=== PATIENT | female | born 1970 | race Caucasian/White ===

== ENCOUNTER 2018-07-27 11:29 | Emergency (ER) | payer MEDICARE, OTHER ==
[~2018-07-27] VITALS: Ht 167.6 cm; Wt 81.7 kg
[~2018-07-27 11:29] MED LIST: LISINOPRIL10 MG PO; ZOLOFT25 MG PO; ZYPREXA10 MG PO
[2018-07-27] MEDS ORDERED: NORCO 5-325 TA1 EACH PO (12:52)
== END 2018-07-27 13:05 | disposition home or self-care (01) ==
LOC: ED 11:29
DX: S82.392A Other fracture of lower end of left tibia, initial encounter for closed fracture (principal); S82.832A Other fracture of upper and lower end of left fibula, initial encounter for closed fracture; I10 Essential (primary) hypertension; F17.200 Nicotine dependence, unspecified, uncomplicated; Z79.899 Other long term (current) drug therapy; W01.0XXA Fall on same level from slipping, tripping and stumbling without subsequent striking against object, initial encounter
CPT/HCPCS: 73610; 99283; 99406

== ENCOUNTER 2019-06-17 11:41 | Emergency (ER) | payer MEDICARE, OTHER ==
[~2019-06-17] VITALS: Ht 167.6 cm; Wt 81.7 kg
[~2019-06-17 11:41] MED LIST changes: +NORCO 5-325 TA1 EACH PO; +SEROQUEL50 MG PO; +SIMVASTATIN5 MG PO
--- OUTSIDE RECORDS SUMMARY | 2019-06-17 11:44 | XMS ---
PreManage Notification: AMINA PANCHAL Security Mess Attendant Events 1 event(s) in the past 18 months Most recent security events: Physical at [facility] 03/20/2019 12:02 - Other Details: POLICE.VIOLENT CRITERIA MET - Group Notification CARE PROVIDERS There are no care providers on record at this time. Casey has no Care Guidelines for this patient. Lizette VISIT COUNT (12 MO.) 4 [facility] TOTAL 4 NOTE: Visits indicate total known visits. ED/C VISIT TRACKING (12 MO.) 06/17/2019 11:42 [facility] [place] TYPE: Emergency COMPLAINT: - OVERDOSE 03/25/2019 15:12 [facility] [place] TYPE: Emergency COMPLAINT: - MEDICAL CLEARANCE DIAGNOSES: - Other intermediate (current) drug therapy - Nicotine dependence, unspecified, uncomplicated - Essential (primary) hypertension - Bipolar disorder, unspecified - Dissociative identity disorder - Schizoaffective disorder, unspecified 03/20/2019 12:02 [facility] [place] TYPE: Emergency COMPLAINT: - MED CLEARANCE DIAGNOSES: - Nicotine dependence, unspecified, uncomplicated - Essential (primary) hypertension - Other intermediate (current) drug therapy - Other stimulant use, unspecified with stimulant-induced psych - Other stimulant use, unspecified with stimulant-induced psych 07/27/2018 11:30 [facility] [place] TYPE: Emergency COMPLAINT: - FALL DIAGNOSES: - Nicotine dependence, cigarettes, uncomplicated - Fall on same level from slipping, tripping and stumbling with - Other fracture of lower end of left tibia, initial encounter - Nicotine dependence, unspecified, uncomplicated - Unspecified injury of left ankle, initial encounter - Other superintendent container terminal (current) drug therapy - Essential (primary) hypertension - Other fracture of upper and lower end of left fibula, initial INPATIENT VISIT TRACKING (12 MO.) No inpatient visits to display in this time frame [id number]
[2019-06-17] MEDS ORDERED: ZYPREXA5 MG PO (12:21)
[2019-06-17] MEDS ORDERED: LISINOPRIL20 MG PO (12:26)
[2019-06-17] MEDS ORDERED: VITAMIN D21250 MCG PO (12:27)
--- NOTE | 2019-06-17 13:09 | EKG ---
[facility] [address] [facility] [place], [place] [address] Signed Normal sinus rhythm Normal ECG No previous ECGs available Confirmed by PAT LARA DO ([id number]) on 06/17/2019 1:09:28 PM Electronically Signed By: PAT LARA DO 06/17/19 1309 PATIENT NAME: AMINA PANCHAL Electrocardiogram DATE OF : 68 PHYSICIAN: PAT LARA DO REPORT #: [id number] REPORT IS CONFIDENTIAL AND NOT TO BE RELEASED WITHOUT AUTHORIZATION
== END 2019-06-17 14:16 | disposition home or self-care (01) ==
LOC: ED 11:41
DX: T43.592A Poisoning by other antipsychotics and neuroleptics, intentional self-harm, initial encounter (principal); T43.212A Poisoning by selective serotonin and norepinephrine reuptake inhibitors, intentional self-harm, initial encounter; I10 Essential (primary) hypertension; Z87.891 Personal history of nicotine dependence; Z79.899 Other long term (current) drug therapy; F15.10 Other stimulant abuse, uncomplicated
CPT/HCPCS: 51701; 80053; 80176; 81001; 84443; 84703; 85025; 93005; 93010; 99285-25; G0480

== ENCOUNTER 2020-08-10 01:35 | Emergency (ER) | payer MEDICARE, OTHER ==
[~2020-08-10] VITALS: Ht 167.6 cm; Wt 81.0 kg
[~2020-08-10 01:35] MED LIST changes: +LISINOPRIL20 MG PO; +VITAMIN D21250 MCG PO; +ZYPREXA5 MG PO
[2020-08-10] MEDS ORDERED: LISINOPRIL20 MG PO (02:32)
--- NOTE | 2020-08-10 11:17 | EKG ---
[facility] [address] [facility] [place], [place] [address] Signed Normal sinus rhythm Normal ECG No previous ECGs available Confirmed by PAT LARA DO ([id number]) on 08/10/2020 11:16:59 AM Electronically Signed By: PAT LARA DO 08/10/20 1117 PATIENT NAME: AMINA MOSES Electrocardiogram DATE OF : 68 PHYSICIAN: PAT LARA DO REPORT #: [id number] REPORT IS CONFIDENTIAL AND NOT TO BE RELEASED WITHOUT AUTHORIZATION
== END 2020-08-10 03:45 | disposition home or self-care (01) ==
LOC: ED 01:35
DX: I10 Essential (primary) hypertension (principal); R07.89 Other chest pain; F17.200 Nicotine dependence, unspecified, uncomplicated
CPT/HCPCS: 93005; 93010; 99284-25

== ENCOUNTER 2021-08-15 17:30 | Emergency (ER) | payer MEDICARE, OTHER ==
[~2021-08-15] VITALS: Ht 167.6 cm; Wt 80.7 kg
--- OUTSIDE RECORDS SUMMARY | 2021-08-15 17:32 | XMS ---
PreManage Notification: AMINA MOSES Security Technical Operations Specialist Events No recent Security Events currently on file CRITERIA MET - Group Notification CARE PROVIDERS There are no care providers on record at this time. Casey has no Care Guidelines for this patient. Lizette VISIT COUNT (12 MO.) 1 [facility] Sal[facility] 1 [facility] Galvan TOTAL 2 NOTE: Visits indicate total known visits. ED/C VISIT TRACKING (12 MO.) 08/15/2021 17:31 [facility] [place] TYPE: Emergency COMPLAINT: - LT KNEE INJURY 10/22/2020 20:26 [facility] [place] TYPE: Emergency DIAGNOSES: - R ELBOW INJ - Unspecified fall, initial encounter - Unspecified injury of right elbow, initial encounter INPATIENT VISIT TRACKING (12 MO.) No inpatient visits to display in this time frame [id number]
[2021-08-15] MEDS ORDERED: NORVASC5 MG PO (19:46)
[2021-08-15] MEDS ORDERED: SIMVASTATIN20 MG PO (19:46)
== END 2021-08-15 21:13 | disposition home or self-care (01) ==
LOC: ED 17:30
DX: S93.402A Sprain of unspecified ligament of left ankle, initial encounter (principal); S80.02XA Contusion of left knee, initial encounter; S80.01XA Contusion of right knee, initial encounter; I10 Essential (primary) hypertension; E78.5 Hyperlipidemia, unspecified; F17.200 Nicotine dependence, unspecified, uncomplicated; Z88.6 Allergy status to analgesic agent; Z91.041 Radiographic dye allergy status; Z88.0 Allergy status to penicillin; Z91.09 Other allergy status, other than to drugs and biological substances; Z79.899 Other long term (current) drug therapy; W19.XXXA Unspecified fall, initial encounter
CPT/HCPCS: 73560; 73610; 99283-25

== ENCOUNTER 2021-09-26 16:41 | Emergency (ER) | payer MEDICARE, OTHER ==
[~2021-09-26] VITALS: Ht 167.6 cm; Wt 68.0 kg
[~2021-09-26 16:41] MED LIST changes: +NORVASC5 MG PO; +SIMVASTATIN20 MG PO
--- OUTSIDE RECORDS SUMMARY | 2021-09-26 16:48 | XMS ---
PreManage Notification: AMINA MOSES Security Band Shover Events No recent Security Events currently on file CRITERIA MET - Group Notification CARE PROVIDERS There are no care providers on record at this time. Casey has no Care Guidelines for this patient. Lizette VISIT COUNT (12 MO.) 1 Giovanni Salazar 2 [facility] Galvan TOTAL 3 NOTE: Visits indicate total known visits. ED/C VISIT TRACKING (12 MO.) 09/26/2021 16:41 [facility] [place] TYPE: Emergency COMPLAINT: - WEAKNESS 08/15/2021 17:31 [facility] [place] TYPE: Emergency COMPLAINT: - LT KNEE INJURY DIAGNOSES: - Pain in left ankle and joints of left foot - Essential (primary) hypertension - Nicotine dependence, unspecified, uncomplicated - Other allergy status, other than to drugs and biological substances - Hyperlipidemia, unspecified - Other penitentiary (current) drug therapy - Contusion of left knee, initial encounter - Radiographic dye allergy status - Unspecified fall, initial encounter - Allergy status to penicillin - Contusion of right knee, initial encounter - Allergy status to analgesic agent - Sprain of unspecified ligament of left ankle, initial encounter 10/22/2020 20:26 [facility] [place] TYPE: Emergency DIAGNOSES: - Unspecified fall, initial encounter - Unspecified injury of right elbow, initial encounter - R ELBOW INJ INPATIENT VISIT TRACKING (12 MO.) No inpatient visits to display in this time frame [id number]
--- NOTE | 2021-09-27 07:30 | EKG ---
[facility] [address] [facility] [place], [place] [address] Signed Normal sinus rhythm Normal ECG When compared with ECG of 10-AUG-2020 02:25, No significant change was found Confirmed by TALON LARA MD ([id number]) on 09/27/2021 7:29:52 AM Electronically Signed By: TALON LARA MD 09/27/21 0730 PATIENT NAME: AMINA MOSES Electrocardiogram DATE OF : 68 PHYSICIAN: TALON LARA MD REPORT #: [id number] REPORT IS CONFIDENTIAL AND NOT TO BE RELEASED WITHOUT AUTHORIZATION
[2021-09-27] MEDS ORDERED: SIMVASTATIN20 MG PO (13:41)
[2021-09-27] MEDS ORDERED: LISINOPRIL20 MG PO (13:42)
[2021-09-27] MEDS ORDERED: ALL DAY ALLERGY10 M3 PO (13:42)
[2021-09-27] MEDS ORDERED: NORVASC5 MG PO (13:42)
[2021-09-27] MEDS ORDERED: ZYPREXA15 MG PO (13:44)
== END 2021-09-28 10:46 | disposition home or self-care (01) ==
LOC: ED 16:41
DX: R45.851 Suicidal ideations (principal); F22 Delusional disorders; F15.90 Other stimulant use, unspecified, uncomplicated; I10 Essential (primary) hypertension; E78.5 Hyperlipidemia, unspecified; F17.200 Nicotine dependence, unspecified, uncomplicated; Z20.822 Contact with and (suspected) exposure to COVID-19; Z88.0 Allergy status to penicillin; Z88.6 Allergy status to analgesic agent; Z91.041 Radiographic dye allergy status; Z91.048 Other nonmedicinal substance allergy status; Z79.899 Other long term (current) drug therapy
CPT/HCPCS: 36415; 70450; 80053; 81001; 84443; 84703; 85025; 87502; 93005; 93010; A9270; C9803; G0480; U0003

== ENCOUNTER 2021-12-31 15:54 | Emergency (ER) | payer MEDICARE, OTHER ==
[~2021-12-31] VITALS: Ht 167.6 cm; Wt 88.5 kg
[~2021-12-31 15:54] MED LIST changes: +ALL DAY ALLERGY10 M3 PO; +ZYPREXA15 MG PO
--- OUTSIDE RECORDS SUMMARY | 2021-12-31 16:02 | XMS ---
PreManage Notification: AMINA MOSES Security Supervisor Quality Control Events No recent Security Events currently on file CRITERIA MET - Group Notification CARE PROVIDERS There are no care providers on record at this time. Casey has no Care Guidelines for this patient. Lizette VISIT COUNT (12 MO.) 3 JOHN Galvan TOTAL 3 NOTE: Visits indicate total known visits. ED/C VISIT TRACKING (12 MO.) 12/31/2021 15:54 [facility] [place] TYPE: Emergency COMPLAINT: - GENITAL BLEEDING 09/26/2021 16:41 [facility] [place] TYPE: Emergency COMPLAINT: - WEAKNESS DIAGNOSES: - Suicidal ideations - Allergy status to penicillin - Essential (primary) hypertension - Other stimulant use, unspecified with stimulant-induced psychotic disorder, unspecified - Hyperlipidemia, unspecified - Contact with and (suspected) exposure to COVID-19 - Other nonmedicinal substance allergy status - Other stimulant use, unspecified, uncomplicated - Radiographic dye allergy status - Other senior sharepoint architect (current) drug therapy - Delusional disorders - Allergy status to analgesic agent - Headache, unspecified - Nicotine dependence, unspecified, uncomplicated 08/15/2021 17:31 [facility] [place] TYPE: Emergency COMPLAINT: - LT KNEE INJURY DIAGNOSES: - Other allergy status, other than to drugs and biological substances - Hyperlipidemia, unspecified - Other senior sharepoint architect (current) drug therapy - Contusion of left knee, initial encounter - Radiographic dye allergy status - Unspecified fall, initial encounter - Allergy status to penicillin - Contusion of right knee, initial encounter - Allergy status to analgesic agent - Sprain of unspecified ligament of left ankle, initial encounter - Pain in left ankle and joints of left foot - Essential (primary) hypertension - Nicotine dependence, unspecified, uncomplicated INPATIENT VISIT TRACKING (12 MO.) No inpatient visits to display in this time frame [id number]
[2021-12-31] MEDS ORDERED: METFORMIN HCL500 M1 PO (16:58)
[2021-12-31] MEDS ORDERED: VITAMIN D21250 MCG PO (16:58)
[2021-12-31] MEDS ORDERED: TRAZODONE HCL100 MG PO (16:58)
== END 2021-12-31 22:19 | disposition home or self-care (01) ==
LOC: ED 15:54
DX: N93.9 Abnormal uterine and vaginal bleeding, unspecified (principal); I10 Essential (primary) hypertension; E78.5 Hyperlipidemia, unspecified; F17.200 Nicotine dependence, unspecified, uncomplicated; Z88.0 Allergy status to penicillin; Z88.6 Allergy status to analgesic agent; Z91.048 Other nonmedicinal substance allergy status; Z79.84 Long term (current) use of oral hypoglycemic drugs; Z79.899 Other long term (current) drug therapy
CPT/HCPCS: 36415; 80053; 81001; 85025; 99284

== ENCOUNTER 2023-03-12 13:26 | Emergency (ER) | payer MEDICARE, OTHER ==
[~2023-03-12] VITALS: Ht 167.6 cm; Wt 99.8 kg
[~2023-03-12 13:26] MED LIST changes: +METFORMIN HCL500 M1 PO; +TRAZODONE HCL100 MG PO
--- OUTSIDE RECORDS SUMMARY | 2023-03-12 13:35 | XMS ---
PreManage Notification: AMINA MOSES Security Fire Inspector Events No recent Security Events currently on file CRITERIA MET - Group Notification CARE PROVIDERS -, [place]- Dentist: Golf Sales Manager [facility] PHONE: [phone] -, [place]- Dentist: Golf Sales Manager [facility] PHONE: [phone] [facility]/Center: [facility] Current \F\ [facility] PHONE: [phone] Casey has no Care Guidelines for this patient. E.D. VISIT COUNT (12 MO.) 2 JOHN Galvan TOTAL 2 NOTE: Visits indicate total known visits. ED/UCC VISIT TRACKING (12 MO.) 03/12/2023 13:27 [facility] [place] TYPE: Emergency COMPLAINT: - CHEST PAIN 08/29/2022 22:20 [facility] [place] TYPE: Emergency COMPLAINT: - MEDICAL CLEARANCE DIAGNOSES: - Allergy status to analgesic agent - Allergy status to other drugs, medicaments and biological substances - Allergy status to penicillin - Allergy to seafood - Brief psychotic disorder - Contusion of left forearm, initial encounter - Essential (primary) hypertension - Hyperlipidemia, unspecified - Nicotine dependence, unspecified, uncomplicated - Other termite treater (current) drug therapy - Other nonmedicinal substance allergy status - Other stimulant use, unspecified with stimulant-induced psychotic disorder, unspecified - Pain in left forearm - Pain in right leg - Unspecified fall, initial encounter INPATIENT VISIT TRACKING (12 MO.) No inpatient visits to display in this time frame [id number]
[2023-03-12 13:49] LABS: BASOPHILS 0.8 % (0-2); EOSINOPHILS 2.1 % (0-6); HEMATOCRIT 40.9 % (35.0-50.0); HEMOGLOBIN 13.6 g/dL (12.0-18.0); LYMPHOCYTES 27.3 % (24-44); MCH 25.8 (27-36); MCHC 33.3 g/dl (30-36); MCV 77.3 fl (81-99); MONOCYTES 7.7 % (0-12); NEUTROPHILS 62.1 % (39-80); PLATELET COUNT 211 K/uL (140-440); RBC 5.29 M/ul (4.3-5.7); RDW 15.5 (10.5-15.0)
[2023-03-12 14:13] LABS: ALBUMIN 3.5 g/dL (3.4-5.0); ALBUMIN/GLOBULIN RATIO 0.92 (1.1-2.4); ALCOHOL, MEDICAL <3 ng/dL (<3); ALKALINE PHOSPHATASE 62 U/L (46-116); ALT (SGPT) 28 U/L (14-59); ANION GAP 17.6 (7-21); AST (SGOT) 33 U/L (15-37); BILIRUBIN, TOTAL 0.5 ng/dL (0.2-1.0); BUN/CREATININE RATIO 13.68 (6.0-28.6); CALCIUM 9.5 mg/dL (8.5-10.1); CARBON DIOXIDE 25 mmol/L (21-32); CHLORIDE 108 mmol/L (98-107); CREATININE, SERUM 0.95 mg/dL (0.55-1.02); GLOMERULAR FILTRATION RATE,EST 72 mL/min (>60); POTASSIUM 3.6 mmol/L (3.5-5.1); PROTEIN, TOTAL 7.3 g/dL (6.4-8.2); UREA NITROGEN 13 mg/dL (7-18)
[2023-03-12 14:19] LABS: BILIRUBIN, URINE POSITIVE (negative); BLOOD/HGB, URINE NEGATIVE (Negative); KETONE, URINE SMALL (Negative); LEUK ESTERASE, URINE NEGATIVE (negative); NITRITE, URINE NEGATIVE (negative); PH, URINE 5.5 (5-7)
[2023-03-12 14:33] LABS: RED BLOOD CELLS, URINE 0-1 /hpf (0-5); WHITE BLOOD CELLS, URINE 0-1 /HPF (0-5)
[2023-03-12 14:34] LABS: BACTERIA, URINE 3+ /hpf (negative); EPITHELIAL CELLS, URINE SQUAMOUS 1+ /lpf (0-1+)
[2023-03-12 14:35] LABS: COLLECTION TYPE, URINE CLEAN CATCH; CRYSTALS, URINE CALCIUM OXALATE 1+ (0-1+); REFLEX CULTURE, URINE Yes (No)
[2023-03-12 14:43] LABS: AMPHETAMINES, URINE POSITIVE (NEGATIVE); BARBITURATES, URINE NEGATIVE (NEGATIVE); BENZODIAZEPINE, URINE NEGATIVE (NEGATIVE); BUPRENORPHINE, URINE NEGATIVE (NEGATIVE); CANNABINOID, URINE POSITIVE (NEGATIVE); COCAINE, URINE NEGATIVE (NEGATIVE); ECSTASY, URINE NEGATIVE (NEGATIVE); FENTANYL, URINE NEGATIVE (NEGATIVE); METHADONE, URINE NEGATIVE (NEGATIVE); OPIATES, URINE NEGATIVE (NEGATIVE); OXYCODONE, URINE NEGATIVE (NEGATIVE); PHENCYCLIDINE, URINE NEGATIVE (NEGATIVE)
[2023-03-12 16:41] VITALS: BP 163/102
--- NOTE | 2023-03-13 20:18 | EKG ---
[facility] [address] [facility] [place] [address] Signed Normal sinus rhythm Normal ECG When compared with ECG of 26-SEP-2021 17:24, No significant change was found Confirmed by Danii Ornelas MD () on 03/13/2023 8:18:42 PM Electronically Signed By: DANII ORNELAS MD 03/13/23 2018 PATIENT NAME: AMINA MOSES Electrocardiogram DATE OF : 68 PHYSICIAN: DANII ORNELAS MD REPORT #: [id number] REPORT IS CONFIDENTIAL AND NOT TO BE RELEASED WITHOUT AUTHORIZATION
== END 2023-03-12 16:42 | disposition home or self-care (01) ==
LOC: ED 13:26
PROVIDERS: Family Medicine
DX: F15.129 Other stimulant abuse with intoxication, unspecified (principal); N39.0 Urinary tract infection, site not specified; F17.210 Nicotine dependence, cigarettes, uncomplicated; Z88.0 Allergy status to penicillin; Z91.013 Allergy to seafood; Z91.09 Other allergy status, other than to drugs and biological substances; Z88.6 Allergy status to analgesic agent; Z79.899 Other long term (current) drug therapy
CPT/HCPCS: 36415; 51701; 71045; 80053; 80307; 81001; 83605; 84484; 85025; 87040; 87088; 93005; 93010; 99285-25; G0480

== ENCOUNTER 2023-08-29 10:34 | Emergency (ER) | payer MEDICARE, OTHER ==
[~2023-08-29] VITALS: Ht 170.2 cm; Wt 57.9 kg
[~2023-08-29 10:34] MED LIST changes: +AMLODIPINE BES2.5 MG PO; +CEFPODOXIME PR200 MG PO; +DOXYCYCLINE HY100 MG PO; +LISINOPRIL2.5 MG PO; +TRAZODONE HCL50 MG PO
--- OUTSIDE RECORDS SUMMARY | 2023-08-29 10:35 | XMS ---
PreManage Notification: AMINA MOORE Security Rug Cutter Helper Events No recent Security Events currently on file CRITERIA MET - 6 ED Visits in 6 Months - Group Notification - [facility] - 2 Visits in 30 Days CARE PROVIDERS -, [facility]ist: Air Press Operator Current [place] PHONE: [phone] -, [place]- Dentist: Air Press Operator Current [facility] PHONE: [phone] -, [place]- Dentist: Air Press Operator Current [facility] PHONE: [phone] [facility]/Center: [facility] Current \F\ [facility] PHONE: [phone] Casey has no Care Guidelines for this patient. Lizette VISIT COUNT (12 MO.) 5 JOHN Fernandez [facility] TOTAL 9 NOTE: Visits indicate total known visits. ED/UCC VISIT TRACKING (12 MO.) 08/29/2023 10:34 [facility] [place] TYPE: Emergency COMPLAINT: - MEDICAL CLEARANCE 08/02/2023 07:30 [facility] [place] TYPE: Emergency DIAGNOSES: - Effusion, right knee - RIGHT KNEE INJURY 07/08/2023 14:33 [facility] [place] TYPE: Emergency DIAGNOSES: - Nausea with vomiting, unspecified - DEHYDRATION 07/02/2023 07:15 [facility] [place] TYPE: Emergency COMPLAINT: - R EAR PAIN DIAGNOSES: - R EAR PAIN 04/19/2023 08:17 [facility] [place] TYPE: Emergency COMPLAINT: - L LOWER ABD PAIN, CONSTIPATION, NAUSEA DIAGNOSES: - Allergy status to narcotic agent - Allergy to seafood - Contact with and (suspected) exposure to infections with a predominantly sexual mode of transmission - Left lower quadrant pain - Other senior care (current) drug therapy - Tubulo-interstitial nephritis, not specified as acute or chronic 04/07/2023 10:27 [facility] [place] TYPE: Emergency COMPLAINT: - MEDICAL CLEARANCE DIAGNOSES: - Alcohol use, unspecified, uncomplicated - Allergy to seafood - Other stimulant abuse with intoxication, unspecified - Other symptoms and signs involving appearance and behavior - Schizoaffective disorder, unspecified 2023 09:23 [facility] [place] TYPE: Emergency DIAGNOSES: - Pain in left forearm - Pain in right forearm - R ELBOW PAIN 03/12/2023 13:27 [facility] [place] TYPE: Emergency COMPLAINT: - CHEST PAIN DIAGNOSES: - Allergy status to analgesic agent - Allergy status to penicillin - Allergy to seafood - Nicotine dependence, cigarettes, uncomplicated - Other allergy status, other than to drugs and biological substances - Other senior care (current) drug therapy - Other stimulant abuse with intoxication, unspecified - Transient alteration of awareness - Urinary tract infection, site not specified 08/29/2022 22:[address] [facility] [place] TYPE: Emergency COMPLAINT: - MEDICAL CLEARANCE DIAGNOSES: - Allergy status to analgesic agent - Allergy status to other drugs, medicaments and biological substances - Allergy status to penicillin - Allergy to seafood - Brief psychotic disorder - Contusion of left forearm, initial encounter - Essential (primary) hypertension - Hyperlipidemia, unspecified - Nicotine dependence, unspecified, uncomplicated - Other senior care (current) drug therapy - Other nonmedicinal substance allergy status - Other stimulant use, unspecified with stimulant-induced psychotic disorder, unspecified - Pain in left forearm - Pain in right leg - Unspecified fall, initial encounter INPATIENT VISIT TRACKING (12 MO.) No inpatient visits to display in this time frame [email or web address]
[2023-08-29] MEDS ORDERED: OLANZapine 10 MG TABDIS PO ONE (11:00)
[2023-08-29] MEDS ORDERED: LORazepam 2 MG/ML VIAL IM ONE (11:00)
[2023-08-29] MEDS ORDERED: diphenhydrAMINE HCL 50 MG/ML VIAL IM ONE (11:00)
[2023-08-29] MEDS ORDERED: HALOPERIDOL LACTATE 5 MG/ML VIAL IM ONE (11:00)
[2023-08-29 11:10] LABS: BASOPHILS 0.8 % (0-2); EOSINOPHILS 2.9 % (0-6); HEMATOCRIT 41.7 % (35.0-50.0); HEMOGLOBIN 13.7 g/dL (12.0-18.0); LYMPHOCYTES 38.7 % (24-44); MCH 25.8 (27-36); MCHC 32.7 g/dl (30-36); MONOCYTES 7.3 % (0-12); NEUTROPHILS 50.3 % (39-80); PLATELET COUNT 186 K/uL (140-440); RBC 5.28 M/ul (4.3-5.7); RDW 16.5 (10.5-15.0)
[2023-08-29 11:36] LABS: ACETAMINOPHEN 0 ug/mL (10-30); ALBUMIN 3.6 g/dL (3.4-5.0); ALBUMIN/GLOBULIN RATIO 1.03 (1.1-2.4); ALCOHOL, MEDICAL <3 ng/dL (<3); ALKALINE PHOSPHATASE 59 U/L (46-116); ALT (SGPT) 18 U/L (14-59); ANION GAP 13.5 (7-21); AST (SGOT) 14 U/L (15-37); BILIRUBIN, TOTAL 0.3 ng/dL (0.2-1.0); BUN/CREATININE RATIO 27.58 (6.0-28.6); CARBON DIOXIDE 29 mmol/L (21-32); CHLORIDE 105 mmol/L (98-107); CREATININE, SERUM 1.16 mg/dL (0.55-1.02); GLOMERULAR FILTRATION RATE,EST 56 mL/min (>60); POTASSIUM 3.5 mmol/L (3.5-5.1); PROTEIN, TOTAL 7.1 g/dL (6.4-8.2); TSH, 3RD GENERATION 0.811 uIU/mL (0.358-3.740); UREA NITROGEN 32 mg/dL (7-18)
[2023-08-29 13:20] LABS: BILIRUBIN, URINE NEGATIVE (negative); BLOOD/HGB, URINE NEGATIVE (Negative); KETONE, URINE NEGATIVE (Negative); LEUK ESTERASE, URINE NEGATIVE (negative); NITRITE, URINE NEGATIVE (negative); PH, URINE 5.5 (5-7)
[2023-08-29 13:41] LABS: AMPHETAMINES, URINE POSITIVE (NEGATIVE); BARBITURATES, URINE NEGATIVE (NEGATIVE); BENZODIAZEPINE, URINE NEGATIVE (NEGATIVE); BUPRENORPHINE, URINE NEGATIVE (NEGATIVE); CANNABINOID, URINE POSITIVE (NEGATIVE); COCAINE, URINE NEGATIVE (NEGATIVE); ECSTASY, URINE NEGATIVE (NEGATIVE); FENTANYL, URINE NEGATIVE (NEGATIVE); METHADONE, URINE NEGATIVE (NEGATIVE); OPIATES, URINE NEGATIVE (NEGATIVE); OXYCODONE, URINE NEGATIVE (NEGATIVE); PHENCYCLIDINE, URINE NEGATIVE (NEGATIVE)
[2023-08-30 19:58] VITALS: BP 151/90
== END 2023-08-31 12:15 | disposition home or self-care (01) ==
LOC: ED 10:34
PROVIDERS: Emergency Medicine
DX: F17.200 Nicotine dependence, unspecified, uncomplicated (principal); Z88.0 Allergy status to penicillin; Z91.013 Allergy to seafood; Z88.6 Allergy status to analgesic agent; Z88.5 Allergy status to narcotic agent; Z91.09 Other allergy status, other than to drugs and biological substances
CPT/HCPCS: 36415; 51701; 80053; 80307; 81003; 84443; 84703; 85025; 99285-25; G0480; J1200; J1630; J2060